=== PATIENT | male | born 2000 | race Hispanic/Latino ===

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

== ENCOUNTER 2018-11-02 13:01 | Emergency (ER) | payer SELFPAY ==
[2018-11-02 13:30] LABS: APPEARANCE,URINE Clear (CLEAR); BILIRUBIN,URINE Negative (NEGATIVE); COLOR,URINE Yellow (YELLOW); GLUCOSE, URINE (UA) Negative (NEGATIVE); KETONES,URINE Negative (NEGATIVE); LEUKOCYTE ESTERASE ,URINE Negative (NEGATIVE); NITRATE,URINE Negative (NEGATIVE); OCCULT BLOOD,URINE Negative (NEGATIVE); PROTEIN,URINE Negative (NEGATIVE)
[2018-11-02] MEDS ORDERED: CEFTRIAXONE SODIUM 500 MG VIAL ONE (16:28)
[2018-11-02] MEDS ORDERED: LIDOCAINE HCL-MPF 1% 2ML VIAL ONE (16:28)
[2018-11-02] MEDS ORDERED: AZITHROMYCIN 250 MG TABLET PO ONE (16:28)
== END 2018-11-02 16:43 | disposition home or self-care (01) ==
LOC: EDH 13:01
DX: N50.811 Right testicular pain (principal); Z98.890 Other specified postprocedural states
CPT/HCPCS: 76870; 81003; 87486; 87797; 96372; 99284; J0696; J3490

== ENCOUNTER 2019-03-07 14:14 | Emergency (ER) | payer OTHER ==
[2019-03-07] MEDS ORDERED: IBUPROFEN 600 MG TABLET ONE (14:39)
== END 2019-03-07 14:45 | disposition home or self-care (01) ==
LOC: EDH 14:14
DX: S63.642A Sprain of metacarpophalangeal joint of left thumb, initial encounter (principal); Y93.72 Activity, wrestling; Y93.89 Activity, other specified; Y92.89 Other specified places as the place of occurrence of the external cause; Y99.8 Other external cause status
CPT/HCPCS: 29125; 73130